=== PATIENT | male | born 1985 | race Hispanic/Latino ===

== ENCOUNTER 2023-02-17 19:30 | Emergency (ER) | payer OTHER ==
[~2023-02-17] VITALS: Ht 175.3 cm; Wt 84.4 kg
[2023-02-17] MEDS ORDERED: EPINEPHRINE PF 1MG (1:1,000) 1 MG/ML AMP IM ONE (20:30)
[2023-02-17] MEDS ORDERED: DiphenhydrAMINE HCL 50 MG/ML VIAL IV ONE (20:30)
[2023-02-17] MEDS ORDERED: FAMOTIDINE 20MG VIAL IV ONE (20:30)
[2023-02-17] MEDS ORDERED: DEXAMETHASONE SOD PHOSPHATE 4 MG/ML 1ML VIAL IV ONE (20:30)
[2023-02-17] MEDS ORDERED: 0.9%NACL 1000ML 1,000 ML IV ONE (21:00)
[2023-02-17] MEDS ORDERED: EPIN0.3P3 IJ (23:10)
[2023-02-17] MEDS ORDERED: CETI10CA5 PO (23:10)
[2023-02-17 23:44] VITALS: BP 119/72; PULSE 79; RESP 16; O2SAT 99
== END 2023-02-17 23:45 | disposition home or self-care (01) ==
LOC: EDH 19:30 → EDBD 19:30 → EDH 23:45
DX: T50.995A Adverse effect of other drugs, medicaments and biological substances, initial encounter (principal); Y92.89 Other specified places as the place of occurrence of the external cause
CPT/HCPCS: 99284; 96374; 96375; 96361; 96372; J1100; J1200; J3490; J7030; J0171

== ENCOUNTER 2023-09-09 10:59 | Emergency (ER) | payer OTHER ==
[~2023-09-09] VITALS: Ht 185.4 cm; Wt 91.2 kg
[~2023-09-09 10:59] MED LIST: CETI10CA5 PO; EPIN0.3P3 IJ
[2023-09-09] MEDS: KETOROLAC 30MG VIAL (30MG/ML) IM ONE (13:10)
[2023-09-09] MEDS: DIAZEPAM 5 MG TABLET PO ONE (13:10)
[2023-09-09 14:52] VITALS: BP 102/76; PULSE 62; RESP 18; O2SAT 98
[2023-09-09] MEDS ORDERED: NAPR375T6 PO (15:07)
[2023-09-09] MEDS ORDERED: TIZA2CAP PO (15:07)
== END 2023-09-09 15:22 | disposition home or self-care (01) ==
LOC: EDH 10:59
DX: S46.811A Strain of other muscles, fascia and tendons at shoulder and upper arm level, right arm, initial encounter (principal); S29.012A Strain of muscle and tendon of back wall of thorax, initial encounter; M79.621 Pain in right upper arm; M54.89 Other dorsalgia; Z79.899 Other long term (current) drug therapy; Z90.49 Acquired absence of other specified parts of digestive tract; X58.XXXA Exposure to other specified factors, initial encounter; Y93.89 Activity, other specified; Y92.89 Other specified places as the place of occurrence of the external cause; Y99.8 Other external cause status
CPT/HCPCS: 99285; 72125; 73030; 96372; J1885